=== PATIENT | female | born 1955 | race Caucasian/White ===

== ENCOUNTER → 2019-05-26 | Outpatient (CLI) | payer MEDICARE ==
[~2019-05-26] MED LIST: ATEN50; ATOR40TA; Butalbital-Caf1 EACH; COSENTYX P150 MG/11; DICL75ER; Dyazide 37.5-21 EACH; Estradiol1 MG; METF500C; MOMENI; Mirapex1 MG; Prinivil10 MG; VENL150ER; [UNRECOGNIZED DRUG - OTHER]
== END | disposition home or self-care (01) ==
LOC: LAB 10:00 → LAB SHORT 10:00 → LAB FUT 05-25 13:45
DX: K21.9 Gastro-esophageal reflux disease without esophagitis (principal)
CPT/HCPCS: 87338

== ENCOUNTER 2021-08-29 09:28 | Day surgery (SDC) | payer MEDICARE ==
[~2021-08-29] VITALS: Ht 167.6 cm; Wt 83.2 kg
--- NOTE | 2021-08-29 10:05 | NUR ---
08/29/21 Damaris5 Karen Shaffer 2 TRYS RIGHT HAND BLEW
== END 2021-08-29 11:49 | disposition home or self-care (01) ==
LOC: ORSCSDS 09:28
PROVIDERS: Student in an Organized Health Care Education/Training Program
PROC: 0DBH8ZX Excision of Cecum, Via Natural or Artificial Opening Endoscopic, Diagnostic (ICD-10-PCS; principal; 2021-08-29 10:45)
PROC: 0DBL8ZX Excision of Transverse Colon, Via Natural or Artificial Opening Endoscopic, Diagnostic (ICD-10-PCS; principal; 2021-08-29 10:45)
PROC: 0DBN8ZX Excision of Sigmoid Colon, Via Natural or Artificial Opening Endoscopic, Diagnostic (ICD-10-PCS; principal; 2021-08-29 10:45)
PROC: 0DBK8ZX Excision of Ascending Colon, Via Natural or Artificial Opening Endoscopic, Diagnostic (ICD-10-PCS; principal; 2021-08-29 10:45)
DX: R10.32 Left lower quadrant pain (principal); D12.3 Benign neoplasm of transverse colon; D12.0 Benign neoplasm of cecum; D12.2 Benign neoplasm of ascending colon; D12.5 Benign neoplasm of sigmoid colon; K64.8 Other hemorrhoids; K57.30 Diverticulosis of large intestine without perforation or abscess without bleeding; I10 Essential (primary) hypertension; G47.33 Obstructive sleep apnea (adult) (pediatric); E11.9 Type 2 diabetes mellitus without complications; E78.00 Pure hypercholesterolemia, unspecified; Z79.84 Long term (current) use of oral hypoglycemic drugs; Z79.899 Other long term (current) drug therapy
CPT/HCPCS: 82947; J2704; J7120

== ENCOUNTER → 2025-08-22 | Outpatient (CLI) | payer MEDICARE ==
[~2025-08-22] MED LIST changes: +Aspir 8181 MG PO; +CLOP75 PO; +DUPIXENT
[2025-08-25 10:22] LABS: CALPROTECTIN,FECAL 489 ug/g (<=49)
== END | disposition home or self-care (01) ==
LOC: LAB SHORT 15:45 → LAB 15:45
PROVIDERS: Physician Assistant Medical
DX: K21.9 Gastro-esophageal reflux disease without esophagitis (principal); R10.13 Epigastric pain; R11.14 Bilious vomiting; R10.30 Lower abdominal pain, unspecified
CPT/HCPCS: 83993; 87338